=== PATIENT | female | born 1945 | race Two or more races ===

== ENCOUNTER 2024-04-22 13:20 | Emergency (ER) | payer MEDICARE, MEDICAID, SELFPAY ==
--- NOTE | 2024-04-22 13:35 | XR_ITS ---
Examination: CT brain head without contrast. 2-D sagittal coronal reconstructions Date and time of exam:April 22, 2024 1448 hrs. Indications: Ground-level fall yesterday with injury to the head, left head pain CTDI: vol (mGy):41.2 DLP: (mGycm):761 Technique: Multiple CT axial sections of the brain have been obtained, 5 mm slice thickness. Contrast has not been administered. 2-D sagittal, coronal reconstructions have been obtained Low dose protocols were performed. One or more of the following dose reduction techniques were used; automated exposure control, adjustment of the mA and/or KV according to patient size, use of iterative reconstruction technique. Findings: No significant ventricular enlargement. Intra-axial or extra-axial hemorrhage density is not seen. No mass effect or midline shift Basal cisterns are not remarkable. Fourth ventricle is midline. Cranial vault intact. Left frontal parietal scalp swelling Impression: Negative for acute hemorrhage, mass effect or midline shift
--- NOTE | 2024-04-22 13:35 | XR_ITS ---
Examination: CT cervical spine without contrast 2-D sagittal reconstructions 2-D coronal reconstructions 3-D reconstructions. Exam date and time:April 22, 2024 1448 hrs. Indications: Ground-level fall last night with injury to the neck, neck pain CTDI:vol (mGy) 7.11 DLP: (mGycm) 142 Technique: Multiple 2 mm axial sections of the cervical spine have been obtained. The coronal and sagittal reconstructions have been obtained. 3-D reconstructions have been obtained. Low dose protocols were performed. One or more of the following dose reduction techniques were used; automated exposure control, adjustment of the mA and/or KV according to patient size, use of iterative reconstruction technique. Findings: Axial sections demonstrate intact base of the skull. Grade 1 anterolisthesis C4 on C5 Mild old appearing depression superior endplate T2, T3 C1 exhibit satisfactory relationship to the odontoid. No acute cervical vertebral body fracture seen. Alignment posterior spinous processes satisfactory. Impression: No acute cervical fracture.
--- NOTE | 2024-04-22 13:36 | PD.EDADULT ---
ED General RME/HPI General Chief complaint: Fall Stated complaint: fall Time Seen by Provider: 04/22/24 13:34 Arrival date/time: 04/22/24 13:20 CC: Left-sided head pain left arm pain HPI unwitnessed fall patient presents to the ER via EMS who report tachycardia but no other abnormal vital signs from [facility] facility where the none witnessed fall took place patient states she tripped and fell denies any loss of consciousness. Patient also complaining of an abrasion to her left arm. Patient denies LOC ALOC denies nausea or vomiting. Related Data Home Medications ?Medication ?Instructions ?Recorded ?Confirmed carvedilol 3.125 mg tablet 3.125 mg PO BID 05/30/19 04/30/22 digoxin 125 mcg (0.125 mg) tablet 125 mcg PO QDAY 05/30/19 04/30/22 (Digitek) fluoxetine 20 mg capsule 20 mg PO QDAY 05/30/19 04/30/22 insulin degludec 200 unit/mL (3 24 unit subcut QPM 05/30/19 04/30/22 mL) subcutaneous pen (Tresiba FlexTouch U-200 insulin) levothyroxine 50 mcg tablet 50 mcg PO QMORNING 05/30/19 04/30/22 simvastatin 40 mg tablet 40 mg PO QDAY 05/30/19 04/30/22 ticagrelor 90 mg tablet (Brilinta) 90 mg PO QDAY 05/30/19 04/30/22 aspirin 81 mg tablet,delayed 81 mg PO QDAY 05/31/19 04/30/22 release ascorbic acid (vitamin C) 500 mg 500 mg PO QDAY 09/17/20 04/30/22 tablet (Vitamin C) multivitamin 1 tab PO QDAY 09/17/20 04/30/22 omeprazole 20 mg capsule,delayed 20 mg PO QMORNING 09/17/20 04/30/22 release canagliflozin 100 mg tablet 100 mg PO QMORNING 12/08/20 04/30/22 (Invokana) insulin lispro 100 unit/mL 20 unit subcut TID PRN After every 12/08/20 04/30/22 subcutaneous solution (Humalog meal U-100 Insulin) metformin 1,000 mg tablet 1,000 mg PO BID 12/08/20 04/30/22 Previous Rx's ?Medication ?Instructions ?Recorded fenofibrate nanocrystallized 48 mg 48 mg PO QDAY #30 tabs 06/03/19 tablet levetiracetam 250 mg tablet 500 mg (2 x 250 mg) PO BID #60 tabs 09/28/21 nitrofurantoin 25 mg/5 mL oral 100 mg (20 mL) PO BID UTI #240 mL 09/30/21 suspension lorazepam 0.5 mg tablet (Ativan) 0.5 mg PO QDAY PRN agitation #20 11/16/23 tabs Allergies Allergy/AdvReac Type Severity Reaction Status Date / Time Penicillins Allergy Severe Hives Verified 12/08/20 14:13 Review of Systems Review of Systems Narrative Review of Systems: GEN: No fever, no chills, no weight loss EYES: No discharge, no visual changes, no pain HEENT: No ear pain, no congestion, no sore throat PULM: No shortness of breath, no cough, no congestion CV: No chest pain, no dyspnea on exertion, no palpitations GI: No nausea, no vomiting, no diarrhea, no pain, no constipation : No frequency, no urgency, no dysuria MUSC/SKEL: No joint pain, no back pain SKIN: No rash PSYCH: No hallucinations, no depression HEME/LYMPH: No easy bleeding or bruising tendencies NEURO: No weakness, + headache ED Exam Narrative Physical exam: [General: Frail, deconditioned but not in any acute distress Head hematoma to the left temporal region of the scalp as well as the left parietal, no abrasions active bleeding or depressions. HEENT: Eyes pupils are PERRLA EOMs are intact mouth pink dry membranes swallow symmetrical phonation is normal no otorrhea or rhinorrhea raccoon's Carlin sign nasal or facial asymmetry no epistaxis. Neck is supple nontender Chest equal chest rise nontender to palpation Respiratory: Clear to auscultation no wheezes crackles or rubs CV: Rate rhythm is regular no murmurs rubs or clicks Abdomen is soft nontender no masses positive bowel sounds all 4 quadrants Back: No CVA tenderness no spinous process tenderness from cervical spine thoracic and lumbar spine Skin: Intact no petechiae rash induration ulceration or crepitus Extremities: Moving all extremity against resistance cap refill less than 2 seconds neurosensory intact Neuro: Awake alert oriented x2, person and place, Glascow coma 15 no focal deficits] Course Quality Measures none Orders Category Date Time Status CT cervical spine wo con Stat Exams 04/22/24 13:[address] head/brain wo con Stat Exams 04/22/24 13:35 Completed Vital Signs Vital signs: Vital Signs Temperature 98.0 F 04/22/24 14:09 Pulse Rate 70 04/22/24 14:09 Respiratory Rate 16 04/22/24 14:09 Blood Pressure 113/56 L 04/22/24 14:09 Pulse Oximetry (%) 97 04/22/24 14:09 Oxygen Delivery Method Room Air 04/22/24 14:09 MDM Patient data External records reviewed:: [facility] previous records and EMS form Clinical information provided by:: patient and EMS Social determinants that could affect healthcare access:: none Patient has the following chronic illnesses:: Bradycardia deconditioning hypertension type 2 diabetes How is presenting disease/condition affected by chronic disease/condition?: uneffected by Evaluation data The following diagnostics were reviewed and interpreted by me:: radiology exam(s) Lab and/or radiology exams considered but not ordered:: CT head and C-spine are negative for any acute finding. Interpretation Summary: Fall, scalp hematoma Medications Medications considered but not ordered:: None Medication administrations:: None Consultations Consultation(s) initiated? (list below): No Diagnosis Differential Diagnosis ED Complaint MDM: Closed head injury neck fracture intercerebral hemorrhage Most likely diagnosis given after review of the tests above:: Fall, scalp hematoma Admission Indicated Admission indicated?: not indicated Explain why admission is indicated or not indicated:: Stable for discharge Admission Request Was there a request for admission?: No Disposition Plan Disposition Plan: Discharge Discharge Attestation Discharge Attestation: The patient and all family members were given an opportunity to ask questions and understood the discharge instructions. Discharge instructions specifically effects, indications for sooner follow up or return to the emergency department, and the expected course of current diagnosis. Patient condition: Stable Medical Decision Making Differential Diagnosis Differential Diagnosis: Closed head injury neck fracture intercerebral hemorrhage Discharge Plan Plan Patient Disposition: HOME (Self Care) Patient condition on transfer: Stable Prescriptions/Referrals Prescriptions/Med Rec: No Action levothyroxine 50 mcg Tablet 50 mcg PO QMORNING Patient Comments: BEFORE MEALS ON EMPTY STOMACH insulin degludec [Tresiba FlexTouch U-200] 200 unit/mL (3 mL) Insulin Pen 24 unit SUBCUT QPM simvastatin 40 mg Tablet 40 mg PO QDAY carvedilol 3.125 mg Tablet 3.125 mg PO BID digoxin [Digitek] 125 mcg (0.125 mg) Tablet 125 mcg PO QDAY fluoxetine 20 mg Capsule 20 mg PO QDAY Brilinta 90 mg Tablet 90 mg PO QDAY aspirin 81 mg Tablet,Delayed Release (Dr/Ec) 81 mg PO QDAY fenofibrate nanocrystallized 48 mg tablet 48 mg PO QDAY Qty: 30 0RF metformin 1,000 mg Tablet 1,000 mg PO BID insulin lispro [Humalog U-100 Insulin] 100 unit/mL solution 20 unit subcut TID PRN (Reason: After every meal) Invokana 100 mg Tablet 100 mg PO QMORNING Patient Comments: BEFORE MEALS ON EMPTY STOMACH levetiracetam 250 mg Tablet 500 mg PO BID Qty: 60 1RF nitrofurantoin 25 mg/5 mL suspension 100 mg PO BID MDD 40 ml Qty: 240 0RF Rx Instructions: must administer with a meal/food multivitamin Tablet 1 tab PO QDAY ascorbic acid (vitamin C) [Vitamin C] 500 mg Tablet 500 mg PO QDAY omeprazole 20 mg capsule,delayed release(DR/EC) 20 mg PO QMORNING Patient Comments: BEFORE MEALS ON EMPTY STOMACH lorazepam [Ativan] 0.5 mg tablet 0.5 mg PO QDAY PRN (Reason: agitation) Qty: 20 0RF Referrals: Primo Carson MD [Primary Care Provider] - In 1 week Problem List Clinical Impression: Fall, Left parietal scalp hematoma Patient/Caregiver Discharge Instructions Education Materials: ED Soft Tissue Contusion, ED Fall with Uncertain Cause Print Language: Indonesian Stand Alone Forms: Justine Award Info., Patient Portal Info Letter PA/MANAGER [employer] Supervising Physician PA/MANAGER [employer] Supervising Physician: Brooks Hunter ENP
[2024-04-22 14:02] VITALS: RESP 18; O2SAT 97; BMI 27.4
--- NOTE | 2024-04-22 14:02 | PC.NURSE ---
[facility] from SNF due to unwitnessed fall at 1300. Patient states she remembers falling neg LOC. Per EMS FSB 224, hx of falls, DM, HTN. Patient c/o generalized L sided head and arm pain. Patient arrived to ED with a doll, and calls it her baby. Patient was reoriented that she had a doll in her arms. Patient states This is not a doll, it's a real baby
[2024-04-22 14:09] VITALS: BP 113/56; PULSE 70; RESP 16; TEMP 36.7; O2SAT 97
--- NOTE | 2024-04-22 17:00 | PC.CC ---
[employer] engaged to arrange transport for pt back to [facility]. Pt with hx of dementia and is a high fall risk. 1621-[employer] contacted [facility] transport requested trip ID #[id number]. PCS and face sheet uploaded to [employer]. [id number] from [facility], transport ETA 1740 or sooner.
[2024-04-22 17:09] VITALS: BP 119/60; PULSE 66; RESP 16; TEMP 36.9; O2SAT 100
== END 2024-04-22 17:16 | disposition home or self-care (01) ==
PROVIDERS: Emergency Provider Emergency Medicine; PCP Hospitalist
DX: S00.03XA Contusion of scalp, initial encounter (principal); S19.9XXA Unspecified injury of neck, initial encounter; W01.0XXA Fall on same level from slipping, tripping and stumbling without subsequent striking against object, initial encounter
CPT/HCPCS: 70450; 72125; 99284

== ENCOUNTER 2024-05-15 17:57 | Emergency (ER) | payer MEDICARE, MEDICAID, SELFPAY ==
--- NOTE | 2024-05-15 18:05 | XR_ITS ---
Examination: CT cervical spine without contrast 2-D sagittal reconstructions 2-D coronal reconstructions 3-D reconstructions. Exam date and time:May 15, 2024 2030 hrs. Comparison April 22, 2024 Indications: Ground-level fall today with into the neck, neck pain CTDI:vol (mGy) 6.98 DLP: (mGycm) 136 Technique: Multiple 2 mm axial sections of the cervical spine have been obtained. The coronal and sagittal reconstructions have been obtained. 3-D reconstructions have been obtained. Low dose protocols were performed. One or more of the following dose reduction techniques were used; automated exposure control, adjustment of the mA and/or KV according to patient size, use of iterative reconstruction technique. Findings: Axial sections demonstrate intact base of the skull. Stable grade 1 anterolisthesis C4 on C5 C1 exhibit satisfactory relationship to the odontoid. No acute cervical vertebral body fracture seen. Alignment posterior spinous processes satisfactory. C3-C4 4 mm central osteophyte disc complex C5-C6 3 mm central disc protrusion Impression: No acute cervical fracture.
--- NOTE | 2024-05-15 18:05 | XR_ITS ---
Examination: CT brain head without contrast. 2-D sagittal coronal reconstructions Date and time of exam:May 15, 2024 2030 hrs. Comparison: April 22, 2024 Indications: Ground-level fall today with injury to the head, head pain CTDI: vol (mGy):41.6 DLP: (mGycm):791 Technique: Multiple CT axial sections of the brain have been obtained, 5 mm slice thickness. Contrast has not been administered. 2-D sagittal, coronal reconstructions have been obtained Low dose protocols were performed. One or more of the following dose reduction techniques were used; automated exposure control, adjustment of the mA and/or KV according to patient size, use of iterative reconstruction technique. Findings: No significant ventricular enlargement. Intra-axial or extra-axial hemorrhage density is not seen. No mass effect or midline shift Basal cisterns are not remarkable. Fourth ventricle is midline. Cranial vault intact. Impression: Negative for acute hemorrhage, mass effect or midline shift
--- NOTE | 2024-05-15 18:05 | EDNOTE_ITS ---
ED General RME/HPI General Chief complaint: Fall Stated complaint: FALL Time Seen by Provider: 05/15/24 18:04 Arrival date/time: 05/15/24 17:57 CC: Ground-level fall assessment. The patient presents the ER via EMS with stable vital signs to stay the patient is coming from assisted care facility. Review the paperwork show the patient is a DNR DNI comfort care only. I am not sure why this patient is being sent. The patient has a baseline GCS of 14 is verbal. No specific complaints. Left message with daughter regarding clarifications for care. At 2008, daughter at bedside, and had a long discussion with the daughter regarding a DNR comfort care only. The daughter wants the CT is done at this time and will determine what they need to do with a DNR at a later date. Patient is awake alert oriented stating she has minor left facial pain status post fall Related Data Home Medications ?Medication ?Instructions ?Recorded ?Confirmed carvedilol 3.125 mg tablet 3.125 mg PO BID 05/30/19 04/30/22 digoxin 125 mcg (0.125 mg) tablet 125 mcg PO QDAY 05/30/19 04/30/22 (Digitek) fluoxetine 20 mg capsule 20 mg PO QDAY 05/30/19 04/30/22 insulin degludec 200 unit/mL (3 24 unit subcut QPM 05/30/19 04/30/22 mL) subcutaneous pen (Tresiba FlexTouch U-200 insulin) levothyroxine 50 mcg tablet 50 mcg PO QMORNING 05/30/19 04/30/22 simvastatin 40 mg tablet 40 mg PO QDAY 05/30/19 04/30/22 ticagrelor 90 mg tablet (Brilinta) 90 mg PO QDAY 05/30/19 04/30/22 aspirin 81 mg tablet,delayed 81 mg PO QDAY 05/31/19 04/30/22 release ascorbic acid (vitamin C) 500 mg 500 mg PO QDAY 09/17/20 04/30/22 tablet (Vitamin C) multivitamin 1 tab PO QDAY 09/17/20 04/30/22 omeprazole 20 mg capsule,delayed 20 mg PO QMORNING 09/17/20 04/30/22 release canagliflozin 100 mg tablet 100 mg PO QMORNING 12/08/20 04/30/22 (Invokana) insulin lispro 100 unit/mL 20 unit subcut TID PRN After every 12/08/20 04/30/22 subcutaneous solution (Humalog meal U-100 Insulin) metformin 1,000 mg tablet 1,000 mg PO BID 12/08/20 04/30/22 Previous Rx's ?Medication ?Instructions ?Recorded fenofibrate nanocrystallized 48 mg 48 mg PO QDAY #30 tabs 06/03/19 tablet levetiracetam 250 mg tablet 500 mg (2 x 250 mg) PO BID #60 tabs 09/28/21 nitrofurantoin 25 mg/5 mL oral 100 mg (20 mL) PO BID UTI #240 mL 09/30/21 suspension lorazepam 0.5 mg tablet (Ativan) 0.5 mg PO QDAY PRN agitation #20 11/16/23 tabs Allergies Allergy/AdvReac Type Severity Reaction Status Date / Time Penicillins Allergy Severe Hives Verified 12/08/20 14:13 Review of Systems Review of Systems ROS Unobtainable: unobtainable due to mental status Narrative Review of Systems: GEN: No fever, no chills, no weight loss EYES: No discharge, no visual changes, no pain HEENT: No ear pain, no congestion, no sore throat PULM: No shortness of breath, no cough, no congestion CV: No chest pain, no dyspnea on exertion, no palpitations GI: No nausea, no vomiting, no diarrhea, no pain, no constipation : No frequency, no urgency, no dysuria MUSC/SKEL: No joint pain, no back pain SKIN: No rash PSYCH: No hallucinations, no depression HEME/LYMPH: No easy bleeding or bruising tendencies NEURO: No weakness, no headache Past Medical History Past Medical History NEUROLOGIC: Positive Neurological Disorders, Transient Ischemic Attacks (TIA), Dementia, Epilepsy and Head Trauma; Negative Cerebrovascular Accident, Alzheimer's Disease, Parkinson's Disease, Brain Tumor, Meningitis, Seizures, Multiple Sclerosis, Cerebral Palsy, Amyotrophic Lateral Sclerosis (ALS/Prabha Gehrig's), Guillain-Dolphin Syndrome, Spina Bifida, Paralysis, Peripheral Neuropathy, Love's Palsy, Subdural Hematoma, Migraine, Spinal Cord Injury or Traumatic Brain Injury CARDIAC: Positive Cardiac Disorders, Myocardial Infarction, Cardiac Arrhythmia, Atrial Fibrillation, Angina, Coronary Artery Disease, Hypercholesterolemia, Congenital Heart Disease, Hypertension and Varicose Veins; Negative Heart Murmur, Atherosclerotic Heart Disease, Peripheral Vascular Disease, Aneurysm, Congestive Heart Failure, Valvular Heart Disease, Rheumatic Fever, Cardiomyopathy, Edema, Pericarditis, Cellulitis, Deep Vein Thrombosis or Hypotension RESPIRATORY: Positive Bronchitis; Negative Chronic Obstructive Pulmonary Disease (COPD), Asthma, Emphysema, Pneumonia, Pulmonary Fibrosis, Tuberculosis, Pulmonary Embolism, Pulmonary Edema or Sleep Apnea GASTROINTESTINAL: Positive Gall Bladder Disease, Gastrointestinal Bleed, Ulcer, Hemorrhoids and Gastroesophageal Reflux Disease; Negative Gastrointestinal Disorders, Hepatitis, Cirrhosis, Pancreatitis, Celiac Disease, Esophageal Varices, Velázquez's Esophagus, Colitis, Ulcerative Colitis, Diverticulitis, Diverticulosis, Colorectal Cancer, Irritable Bowel, Crohn's Disease, Obstructive Bowel, Hiatal Hernia or Obesity GENITOURINARY: Positive Kidney Stones; Negative Genitourinary Disorders, Renal Disease, Polycystic Kidney Disease, Neurogenic Bladder, Inguinal Hernia, Dialysis, Prostate Cancer or Benign Prostatic Hyperplasia REPRODUCTIVE: Negative Breast Cancer, Endometriosis, Genital Herpes, Gonorrhea, Pelvic Inflammatory Disease, Previous Pregnancies, Syphilis, Testicular Cancer or Uterine Prolapse MUSCULOSKELETAL: Positive Arthritis, Osteoporosis and Fractures; Negative Bone Cancer, Rheumatoid Arthritis, Degenerative Disk Disease, Gout, Scoliosis, Carpal Tunnel Syndrome, Fibromyalgia, Degenerative Joint Disease, Osteomyelitis or Poliovirus ENT: Positive Glaucoma and Head Trauma; Negative Cataracts, Blind, Retinal Detachment, Macular Degeneration, Ear Infection, Deafness or Eye Prosthesis ENDOCRINE: Positive Endocrine Disorders, Diabetes Mellitus Type 2, Hypoglycemia, Hypothyroidism and Parathyroid Disease; Negative Diabetes Mellitus Type 1, Taqueria's Syndrome, [place]'s Disease, Hyperthyroidism, Pituitary Disease, Systemic Lupus Erythematosus, Syndrome of Inappropriate Antidiuretic Hormone (SIADH), Adrenal Disease or Graves' Disease HEMATOLOGIC: Negative Blood Disorders, Anemia, Leukemia, Hemophilia, Thalassemia, Sickle Cell Disease or Clotting Problems PSYCHO/SOCIAL: Positive Depression, Anxiety and Behavior Problems; Negative Psychiatric Problems, Schizophrenia, Recreational Drug Use, Bipolar Disorder, Self-Mutilation, Attention Deficit Disorder, Attention Deficit Hyperactivity Disorder, Depression, Post Traumatic Stress Disorder or Eating Disorder OTHER HISTORY: Positive Hospitalization and Falls; Negative Autoimmune Disease, Down Syndrome, Autism, Developmental Delay, Shingles, Blood Transfusions, Blood Transfusion Reaction, Anesthesia Reactions, Organ Transplant, Chemotherapy, Radiation Therapy, Hyperbaric Therapy, MRSA, VRSA, Vancomycin-Resistant Enterococci, Human Immunodeficiency Virus (HIV), Chicken Pox, Measles, Mumps, Rubella (Setswana Measles), Pertussis, Clostridium Difficile, Cancer, Breast Cancer, Cervical Cancer, Colorectal Cancer, Lung Cancer, Ovarian Cancer, Prostate Cancer or Testicular Cancer Family History FAMILY HISTORY: Positive Family Cardiac Disorders and Family Surgery; Negative Family Psychiatric Problems, Family Respiratory Disorders, Family Gastrointestinal Problems, Family Cancer or Family Anesthesia Reaction Surgical History SURGICAL: Positive Cardiac Surgery, Coronary Stent, Pacemaker, Auto Implanted Cardiovert Defib, Tonsillectomy, Adenoidectomy and Hysterectomy; Negative Cardiac Catheterization, Ear Surgery, Tympanostomy Tube, Eye Surgery, Nose Surgery, Oral Surgery, Cochlear Implant, Corneal Transplant, Throat Surgery, Abdominal Surgery, Tracheostomy, Gastric Bypass Surgery, Gastrostomy, Bowel Surgery, Joint Replacement, Amputation, Open Reduction Internal Fixation, Arthroscopy, Neurologic Surgery, Brain Shunt, Mastectomy, Lumpectomy, Tubal Lig ation, Section, Vasectomy or Organ Transplant Social History SMOKING STATUS: Never smoker SECOND HAND EXPOSURE: No SUBSTANCE USE: does not use ED Exam Narrative Physical exam: [General: Frail, deconditioned, not in any acute distress Head normocephalic, no step-off hematoma depression induration. HEENT: Eyes pupils are PERRLA EOMs are intact, tracking without entrapment. Mouth: pink moist membranes uvula is midline swallow symmetrical within acceptable limits face: The patient has minor ecchymosis around the left eye orbit, very stages of resolution. Nose: No rhinorrhea epistaxis. Neck is supple nontender, no JVD no edema Chest equal chest rise nontender to palpation Respiratory: Clear to auscultation no wheezes crackles or rubs CV: Rate rhythm is regular no murmurs rubs or clicks Abdomen is soft nontender no masses positive bowel sounds all 4 quadrants Back: No CVA tenderness no spinous process tenderness from cervical spine thoracic and lumbar spine Skin: Intact no petechiae rash induration ulceration or crepitus Extremities: Moving all extremity against resistance cap refill less than 2 seconds neurosensory intact Neuro: Awake alert oriented x 1, self Glascow coma 15 no focal deficits] Course Quality Measures none Orders Category Date Time Status CT cervical spine wo con Stat Exams 05/15/24 18:[address] head/brain wo con Stat Exams 05/15/24 18:05 Completed Vital Signs Vital signs: Vital Signs Temperature 98.1 F 05/15/24 18:17 Pulse Rate 74 05/15/24 18:17 Respiratory Rate 16 05/15/24 18:17 Blood Pressure 124/59 L 05/15/24 18:17 Pulse Oximetry (%) 99 05/15/24 18:17 Oxygen Delivery Method Room Air 05/15/24 18:17 [facility] Patient data External records reviewed:: [facility] previous records and EMS form Clinical information provided by:: EMS Social determinants that could affect healthcare access:: none Patient has the following chronic illnesses:: Heart failure hypertension hyperlipidemia hypothyroidism pacemaker bradycardia anxiety history of falling How is presenting disease/condition affected by chronic disease/condition?: exacerbated by Evaluation data The following diagnostics were reviewed and interpreted by me:: radiology exam (s) Lab and/or radiology exams considered but not ordered:: CT head and C-spine is negative Interpretation Summary: Patient has had no deterioration in neurologic status throughout her visit emergency room and lengthy discussion with the daughter who understands that she needs to make some changes to the DNR selection. Patient is awake and alert. Will discharge home Medications Medications considered but not ordered:: None Medication administrations:: None Consultations Consultation(s) initiated? (list below): No Diagnosis Differential Diagnosis ED Complaint MDM: Closed injury neck fracture facial fracture Most likely diagnosis given after review of the tests above:: Ground-level fall Admission Indicated Admission indicated?: not indicated Explain why admission is indicated or not indicated:: Stable for outpatient follow-up Admission Request Was there a request for admission?: No Disposition Plan Disposition Plan: Discharge Discharge Attestation Discharge Attestation: The patient and all family members were given an opportunity to ask questions and understood the discharge instructions. Discharge instructions specifically effects, indications for sooner follow up or return to the emergency department, and the expected course of current diagnosis. Patient condition: Stable Medical Decision Making Differential Diagnosis Differential Diagnosis: Closed injury neck fracture facial fracture Discharge Plan Plan Patient Disposition: HOME (Self Care) Patient condition on transfer: Stable Prescriptions/Referrals Prescriptions/Med Rec: No Action levothyroxine 50 mcg Tablet 50 mcg PO QMORNING Patient Comments: BEFORE MEALS ON EMPTY STOMACH insulin degludec [Tresiba FlexTouch U-200] 200 unit/mL (3 mL) Insulin Pen 24 unit SUBCUT QPM simvastatin 40 mg Tablet 40 mg PO QDAY carvedilol 3.125 mg Tablet 3.125 mg PO BID digoxin [Digitek] 125 mcg (0.125 mg) Tablet 125 mcg PO QDAY fluoxetine 20 mg Capsule 20 mg PO QDAY Brilinta 90 mg Tablet 90 mg PO QDAY aspirin 81 mg Tablet,Delayed Release (Dr/Ec) 81 mg PO QDAY fenofibrate nanocrystallized 48 mg tablet 48 mg PO QDAY Qty: 30 0RF metformin 1,000 mg Tablet 1,000 mg PO BID insulin lispro [Humalog U-100 Insulin] 100 unit/mL solution 20 unit subcut TID PRN (Reason: After every meal) Invokana 100 mg Tablet 100 mg PO QMORNING Patient Comments: BEFORE MEALS ON EMPTY STOMACH levetiracetam 250 mg Tablet 500 mg PO BID Qty: 60 1RF nitrofurantoin 25 mg/5 mL suspension 100 mg PO BID MDD 40 ml Qty: 240 0RF Rx Instructions: must administer with a meal/food multivitamin Tablet 1 tab PO QDAY ascorbic acid (vitamin C) [Vitamin C] 500 mg Tablet 500 mg PO QDAY omeprazole 20 mg capsule,delayed release(DR/EC) 20 mg PO QMORNING Patient Comments: BEFORE MEALS ON EMPTY STOMACH lorazepam [Ativan] 0.5 mg tablet 0.5 mg PO QDAY PRN (Reason: agitation) Qty: 20 0RF Referrals: Primo Carson MD [Primary Care Provider] - In 1 week Problem List Clinical Impression: Fall Patient/Caregiver Discharge Instructions Education Materials: Preventing Falls Moving Safely ... Print Language: Belarusian Stand Alone Forms: Justine Award Info., Patient Portal Info Letter, Work/School Release PA/REAL TIME TRADER Supervising Physician PA/REAL TIME TRADER Supervising Physician: Brooks Hunter ENP
[2024-05-15 18:17] VITALS: BP 124/59; PULSE 74; RESP 16; TEMP 36.7; O2SAT 99
[2024-05-15 19:57] VITALS: BP 125/54; PULSE 73; RESP 18; TEMP 36.7; O2SAT 99
[2024-05-15 21:20] VITALS: BP 140/53; PULSE 70; RESP 16; O2SAT 100
[2024-05-15 22:10] VITALS: RESP 18
--- NOTE | 2024-05-15 22:14 | PC.NURSE ---
PT'S DAUGHTER TOOK PT BACK TO [facility]. ARASELI REPORT TO NURSE AT THE FACILITY.
== END 2024-05-15 22:13 | disposition home or self-care (01) ==
PROVIDERS: Emergency Provider Emergency Medicine; PCP Hospitalist
DX: S09.90XA Unspecified injury of head, initial encounter (principal); M54.2 Cervicalgia; W18.30XA Fall on same level, unspecified, initial encounter
CPT/HCPCS: 70450; 72125; 99284

== ENCOUNTER 2024-07-23 21:39 | Emergency (ER) | payer MEDICARE, MEDICAID, SELFPAY ==
[2024-07-23 21:42] VITALS: BP 147/75; PULSE 84; RESP 17; TEMP 36.8; O2SAT 98
--- NOTE | 2024-07-23 22:05 | EKG_ITS ---
[facility] Test Date: 2024-07-23 Pat Name: PADMINI PRICE Department: Room: - Gender: Female Vein Pumper: : 1945 Requested By: Abdiel Martínez Order Number: [id number] Reading MD: Abdiel Martínez Measurements Intervals [place] Rate: 65 P: 46 [place]: 174 QRS: 2 QRSD: 95 T: 36 QT: 338 QTc: 352 Interpretive Statements SINUS RHYTHM POSSIBLE ANTERIOR MYOCARDIAL INFARCTION , OF INDETERMINATE AGE [30 ms Q WAVE IN V3/V4, OR R < 0.2 mV IN V4] POSSIBLE INFERIOR MYOCARDIAL INFARCTION , OF INDETERMINATE AGE [30 ms Q WAVE IN II/aVF] Compared to ECG 01/18/2024 08:30:05 Atrial-paced complex(es) or rhythm no longer present Myocardial infarct finding still present /store/S0/[id number]/ecg/[id number].pdf
--- NOTE | 2024-07-23 22:07 | PD.EDRME ---
Rapid Medical Screening Exam RME Arrival date/time: 07/23/24 21:39 29-year-old female brought in by EMS for weakness pale color and bilateral leg pain Time Seen by Provider: 07/23/24 21:57 Vital signs: Vital Signs Temperature 98.2 F 07/23/24 21:42 Pulse Rate 84 07/23/24 21:42 Respiratory Rate 17 07/23/24 21:42 Blood Pressure 147/75 H 07/23/24 21:42 Pulse Oximetry (%) 98 07/23/24 21:42 Oxygen Delivery Method Room Air 07/23/24 21:42
[2024-07-23 22:42] LABS: Beta Hydroxybutyrate 0.2 mmol/L (<0.6)
[2024-07-23 23:00] LABS: Basophils % (Auto) 1 % (0-2.5); Eosinophils # (Auto) 0.1 Thou/mm3 (0.0-0.5); Eosinophils % (Auto) 2 % (0-10); Hematocrit 33.3 % (36.0-46.0); Hemoglobin 11.4 g/dL (12.0-16.0); Immature Granulocytes % (Auto) 1 % (0-0); Immature Granulocytes Auto 0.04 Thou/mm3 (0.00-0.00); Lymphocytes # (Auto) 2.1 Thou/mm3 (1.0-4.8); Lymphocytes % (Auto) 29 % (10-50); Mean Corpuscular HGB Conc 34.2 g/dl (31.0-37.0); Mean Corpuscular Hemoglobin 30.3 pg (25.0-35.0); Mean Corpuscular Volume 89 fL (80-100); Monocytes # (Auto) 0.4 Thou/mm3 (0.0-0.8); Monocytes % (Auto) 6 % (0-12); Neutrophils # (Auto) 4.4 Thou/mm3 (1.8-7.7); Neutrophils % (Auto) 62 % (37-80); Nucleated Red Blood Cell % 0 /100 WBC (0); Platelet Count 140 Thou/mm3 (140-440); RDW Standard Deviation 40.6 fL (36.4-46.3); Red Blood Count 3.76 Miln/mm3 (4.00-5.20); White Blood Count 7.1 Thou/mm3 (3.6-11.0)
[2024-07-23 23:15] LABS: Collection Type, Urine Catheter
[2024-07-23 23:19] LABS: Bacteria,Urine 1+; Bilirubin,Urine Negative (Negative); Blood,Urine Negative (Negative); Clarity,Urine Clear (Clear/Hazy); Color,Urine Lt-Yellow (Lt Yel-Yel); Culture Indicated,Urine Yes; Glucose, Urine 2+ (Negative); Hyaline Casts,Urine < 1 /hpf (0-1); Ketones,Urine Negative (Negative); Leukocyte Esterase,Urine Positive (Negative); Nitrite,Urine Positive (Negative); Protein,Urine Trace (Neg - Trace); RBC,Urine 1 /hpf (0-3); Specific Gravity,Urine 1.012 (1.001-1.035); Squamous Epithelial Cell,Urine < 1 /hpf (0-5); Urobilinogen,Urine Negative mg/dL (0.0-1.0); WBC,Urine 15 /hpf (0-5)
[2024-07-23 23:20] VITALS: BMI 17.3
--- NOTE | 2024-07-23 23:34 | EDNOTE_ITS ---
<Statement entered by Jasmyn Weir MD - 07/24/24 01:44> As co-signing physician, I was present and available for consult prn. I concur with the plan and care as documented by the midlevel provider. Lower Extremity Injury RME/HPI General Chief Complaint: Extremity Injury, Lower Stated Complaint: FOOT PAIN Time Seen by Provider: 07/23/24 21:57 Arrival date/time: 07/23/24 21:39 79-year-old female with a history of dementia, CHF, hypothyroidism, DM, and is a resident at a half-way facility was sent via EMS for bilateral lower extremity pain pale skin and weakness. Patient's daughter states she has a history of anemia and is concerned that her levels are low again as she appears to be extremely pale. Daughter also states that mom does have some confusion given the dementia but today she is more confused than typical. Daughter states that she was advised by her mom that her legs were hurting but there is no evidence of injury with no bruising swelling or deformity. Limitations: no limitations RME / HPI RME / HPI Narrative: 07/23/24 21:39 79-year-old female brought in by EMS for weakness pale color and bilateral leg pain Related Data Home Medications ?Medication ?Instructions ?Recorded ?Confirmed carvedilol 3.125 mg tablet 3.125 mg PO BID 05/30/19 digoxin 125 mcg (0.125 mg) tablet 125 mcg PO QDAY 06/1804/30/22 (Digitek) fluoxetine 20 mg capsule 20 mg PO QDAY 05/30/1904/30 insulin degludec 200 unit/mL (3 24 unit subcut QPM 06/1804/30/22 mL) subcutaneous pen (Tresiba FlexTouch U-200 insulin) levothyroxine 50 mcg tablet 50 mcg PO QMORNING 0 04/30/22 simvastatin 40 mg tablet 40 mg PO QDAY 05/30/1904/30 ticagrelor 90 mg tablet (Brilinta) 90 mg PO QDAY 05/3004/30/22 aspirin 81 mg tablet,delayed 81 mg PO QDAY 05/31/19 release ascorbic acid (vitamin C) 500 mg 500 mg PO QDAY 04/30/22 tablet (Vitamin C) multivitamin 1 tab PO QDAY 09/17/2004/30 omeprazole 20 mg capsule,delayed 20 mg PO QMORNING 04/30/22 release canagliflozin 100 mg tablet 100 mg PO QMORNING 1 04/30/22 (Invokana) insulin lispro 100 unit/mL 20 unit subcut TID PRN Afte r every 12/08/20 04/30/22 subcutaneous solution (Humalog meal U-100 Insulin) metformin 1,000 mg tablet 1,000 mg PO BID 12/08/2007/21 Previous Rx's ?Medication ?Instructions ?Recorded fenofibrate nanocrystallized 48 mg 48 mg PO QDAY #30 t abs 06/03/19 tablet levetiracetam 250 mg tablet 500 mg (2 x 250 mg) PO BID #60 tabs 09/28/21 nitrofurantoin 25 mg/5 mL oral 100 mg (20 mL) PO BID U TI #240 mL 09/30/21 suspension lorazepam 0.5 mg tablet (Ativan) 0.5 mg PO QDAY PRN ag itation #20 11/16/23 tabs nitrofurantoin 100 mg PO Q12H 7 days #14 ca ps 07/24/24 monohydrate/macrocrystals 100 mg capsule (Macrobid) Allergies Allergy/AdvReac Type Severity Reaction Status Date / Time Penicillins Allergy Severe Hives Verified 07/23/24 21:42 Review of Systems Constitutional Constitutional: Denies chills and Denies fever(s) Cardiovascular Cardiovascular: Denies chest pain, Denies dyspnea and Denies syncope Respiratory Respiratory: Denies cough and Denies dyspnea Gastrointestinal Gastrointestinal: Denies abdominal pain and Denies vomiting Genitourinary Genitourinary: Denies difficulty voiding, Denies dysuria and Denies hematuria Musculoskeletal Musculoskeletal: Reports arthralgias, Denies deformity and Denies joint swelling Integumentary/Breasts Skin/Breast: Denies erythema, Denies rash, Denies unusual bruising and Denies wounds Neurologic Neurologic: Reports behavioral changes, Reports confusion, Denies convulsions and Denies syncope Psychiatric Psychiatric: Reports behavioral changes, Denies change in appetite and Reports confusion Hematologic/Lymphatic Hematologic/Lymphatic: Denies easy bleeding and Denies easy bruising Past Medical History Past Medical History NEUROLOGIC: Positive Neurological Disorders, Transient Ischemic Attacks (TIA), Dementia, Epilepsy and Head Trauma; Negative Cerebrovascular Accident, Alzheimer's Disease, Parkinson's Disease, Brain Tumor, Meningitis, Seizures, Multiple Sclerosis, Cerebral Palsy, Amyotrophic Lateral Sclerosis (ALS/Prabha Gehrig's), Guillain-[place] Syndrome, Spina Bifida, Paralysis, Peripheral Neuropathy, Love's Palsy, Subdural Hematoma, Migraine, Spinal Cord Injury or Traumatic Brain Injury CARDIAC: Positive Cardiac Disorders, Myocardial Infarction, Cardiac Arrhythmia, Atrial Fibrillation, Angina, Coronary Artery Disease, Hypercholesterolemia, Hypertension and Varicose Veins; Negative Heart Murmur, Atherosclerotic Heart Disease, Peripheral Vascular Disease, Aneurysm, Congestive Heart Failure, Congenital Heart Disease, Valvular Heart Disease, Rheumatic Fever, Cardiomyopathy, Edema, Pericarditis, Cellulitis, Deep Vein Thrombosis or Hypotension RESPIRATORY: Negative Chronic Obstructive Pulmonary Disease (COPD), Asthma, Bronchitis, Emphysema, Pneumonia, Pulmonary Fibrosis, Tuberculosis, Pulmonary Embolism, Pulmonary Edema or Sleep Apnea GASTROINTESTINAL: Positive Gall Bladder Disease, Gastrointestinal Bleed, Ulcer, Hemorrhoids and Gastroesophageal Reflux Disease; Negative Gastrointestinal Disorders, Hepatitis, Cirrhosis, Pancreatitis, Celiac Disease, Esophageal Varices, Velázquez's Esophagus, Colitis, Ulcerative Colitis, Diverticulitis, Diverticulosis, Colorectal Cancer, Irritable Bowel, Crohn's Disease, Obstructive Bowel, Hiatal Hernia or Obesity GENITOURINARY: Positive Kidney Stones; Negative Genitourinary Disorders, Renal Disease, Polycystic Kidney Disease, Neurogenic Bladder, Inguinal Hernia, Dialysis, Prostate Cancer or Benign Prostatic Hyperplasia REPRODUCTIVE: Negative Breast Cancer, Endometriosis, Genital Herpes, Gonorrhea, Pelvic Inflammatory Disease, Previous Pregnancies, Syphilis, Testicular Cancer or Uterine Prolapse MUSCULOSKELETAL: Positive Arthritis, Osteoporosis and Fractures; Negative Bone Cancer, Rheumatoid Arthritis, Degenerative Disk Disease, Gout, Scoliosis, Carpal Tunnel Syndrome, Fibromyalgia, Degenerative Joint Disease, Osteomyelitis or Poliovirus ENT: Positive Glaucoma and Head Trauma; Negative Cataracts, Blind, Retinal Detachment, Macular Degeneration, Ear Infection, Deafness or Eye Prosthesis ENDOCRINE: Positive Endocrine Disorders, Diabetes Mellitus Type 2, Hypoglycemia, Hypothyroidism and Parathyroid Disease; Negative Diabetes Mellitus Type 1, Hull's Syndrome, [place]'s Disease, H yperthyroidism, Pituitary Disease, Systemic Lupus Erythematosus, Syndrome of Inappropriate Antidiuretic Hormone (SIADH), Adrenal Disease or Graves' Disease HEMATOLOGIC: Negative Blood Disorders, Anemia, Leukemia, Hemophilia, Thalassemia, Sickle Cell Disease or Clotting Problems PSYCHO/SOCIAL: Positive Depression, Anxiety and Behavior Problems; Negative Psychiatric Problems, Schizophrenia, Recreational Drug Use, Bipolar Disorder, Self-Mutilation, Attention Deficit Disorder, Attention Deficit Hyperactivity Disorder, Depression, Post Traumatic Stress Disorder or Eating Disorder OTHER HISTORY: Positive Hospitalization and Falls; Negative Autoimmune Disease, Down Syndrome, Autism, Developmental Delay, Shingles, Blood Transfusions, Blood Transfusion Reaction, Anesthesia Reactions, Organ Transplant, Chemotherapy, Radiation Therapy, Hyperbaric Therapy, MRSA, VRSA, Vancomycin-Resistant Enterococci, Human Immunodeficiency Virus (HIV), Chicken Pox, Measles, Mumps, Rubella (Frisian Measles), Pertussis, Clostridium Difficile, Cancer, Breast Cancer, Cervical Cancer, Colorectal Cancer, Lung Cancer, Ovarian Cancer, Prostate Cancer or Testicular Cancer Family History FAMILY HISTORY: Positive Family Cardiac Disorders and Family Surgery; Negative Family Psychiatric Problems, Family Respiratory Disorders, Family Gastrointestinal Problems, Family Cancer or Family Anesthesia Reaction Surgical History SURGICAL: Positive Cardiac Surgery, Coronary Stent, Pacemaker, Auto Implanted Cardiovert Defib, Tonsillectomy, Adenoidectomy and Hysterectomy; Negative Cardiac Catheterization, Ear Surgery, Tympanostomy Tube, Eye Surgery, Nose Surgery, Oral Surgery, Cochlear Implant, Corneal Transplant, Throat Surgery, Abdominal Surgery, Tracheostomy, Gastric Bypass Surgery, Gastrostomy, Bowel Surgery, Joint Replacement, Amputation, Open Reduction Internal Fixation, Arthroscopy, Neurologic Surgery, Brain Shunt, Mastectomy, Lumpectomy, Tubal Liga tion, Section, Vasectomy or Organ Transplant Social History SMOKING STATUS: Never smoker SECOND HAND EXPOSURE: No SUBSTANCE USE: does not use ED Exam General Limitations: Present no limitations General appearance: Present alert and in no apparent distress Head Head exam: Present atraumatic Eye Eye exam: Present normal appearance, PERRL and EOMI ENT ENT exam: Present normal exam, normal oropharynx and mucous membranes moist Neck Neck exam: Present normal inspection, full ROM and trachea midline Chest Chest inspection: Present normal inspection and symmetric chest wall rise Respiratory Respiratory exam: Present normal lung sounds bilaterally Cardiovascular Cardiovascular exam: Present regular rate, normal rhythm and normal heart sounds Abdominal Exam Abdominal exam: Present soft and normal bowel sounds Extremities Exam Extremities exam: Present normal inspection and full ROM Back Exam Back exam: Present normal inspection and full ROM Neurological Exam Neurological exam: Present alert, oriented X3 and CN II-XII intact Psychiatric Psychiatric exam: Present normal affect and normal mood Skin Skin exam: Present warm, dry, intact and normal color Course Course Course Narrative: 79-year-old female with a history of dementia, CHF, hypothyroidism, DM, and is a resident at a half-way facility was sent via EMS for bilateral lower extremity pain pale skin and weakness. Patient is EKG sinus rhythm with no ischemic changes no STEMI noted, troponin also negative, beta hydroxybutyrate ,CBC and free T4 are unremarkable. Urinalysis indicative of acute cystitis with white blood cells red blood cells and leuk esterase therefore, the patient will be given a dose of Macrobid and then d/c'd home on oral macrobid, her magnesium was 1.4 so she received 2 g via IV CMP indicated a glucose of 300 she was given a liter of fluids and Quality Measures none Orders Category Date Time Status EKG (ED ONLY) *Do not use* NOW Care 07/23/24 22:06 Completed In and Out Catheter X1 Care 07/23/24 22:05 Active EKG (ED Only) Stat Exams 07/23/24 22:05 Draft Beta Hydroxybutyrate Stat Lab 07/23/24 22:30 Completed CBC Stat Lab 07/23/24 22:30 Completed CMP [Comprehensive Metabolic Panel] Stat Lab 07/23/24 22:30 Completed Free T4 (Free Thyroxine) Stat Lab 07/23/24 22:30 Completed Mag [Magnesium] Stat Lab 07/23/24 22:30 Completed TSH [Thyroid Stimulating Hormone] Stat Lab 07/23/24 22:30 Completed Troponin I Stat Lab 07/23/24 22:30 Completed UA, C/S IF [Urinalysis, C/S if Indicated] Stat Lab 07/23/24 23:01 Completed Urine Culture Stat Lab 07/23/24 23:01 Received Magnesium Sulfate 2 GM Ivpb [Magnesium Sulfate Ivpb] Med 07/24/24 00:27 Active 2 gm in 50 ml IV X1 Nitrofurantoin Macro [Macrobid] Med 07/24/24 00:51 Discontinued 100 mg PO X1 ONE Sodium Chloride 0.9% 1000 ml [Ns] 1,000 ml Med 07/24/24 00:25 Active IV 999 mls/hr cefTRIAXone [Rocephin] 1,000 mg Med 07/24/24 00:24 Discontinued SODIUM CHLORIDE 0.9% (Popper) [NS 0.9% (Popper)] 50 ml IV QDAY Vital Signs Vital signs: Vital Signs Temperature 98.2 F 07/23/24 21:42 Pulse Rate 84 07/23/24 21:42 Respiratory Rate 17 07/23/24 21:42 Blood Pressure 147/75 H 07/23/24 21:42 Pulse Oximetry (%) 98 07/23/24 21:42 Oxygen Delivery Method Room Air 07/23/24 21:42 Procedures -ED EKG Interpretation #1: EKG Impression: Normal sinus rhythm, No acute ST-T changes and No ischemic changes Extremity Injury, Lower Patient data External records reviewed:: [facility] Clinical information provided by:: family Social determinants that could affect healthcare access:: none Patient has the following chronic illnesses:: CHF, DM, dementia How is presenting disease/condition affected by chronic disease/condition?: uneffected by Evaluation data The following diagnostics were reviewed and interpreted by me:: lab results and radiology exam(s) Lab and/or radiology exams considered but not ordered:: none Interpretation Summary: Slightly elevated glucose, low magnesium, low TSH but normal T4 and evidence of urinary tract infection Medications / Prescriptions Medications or Prescriptions considered but not ordered:: none Medication administrations:: Medication Administration History Sodium Chloride (Ns) 1,000 mls @ 999 mls/hr IV .Q1H1M ONE Stop: 07/24/24 01:25 Last Admin: 07/24/24 00:51 Dose: 999 mls/hr Documented By: TK Magnesium Sulfate (Magnesium Sulfate Ivpb) 2 gm in 50 mls @ 25 mls/hr IV X1 ONE Stop: 07/24/24 02:26 Last Admin: 07/24/24 00:50 Dose: 25 mls/hr Documented By: TK Discontinued Medications Ceftriaxone Sodium 1,000 mg/ (Sodium Chloride) 50 mls @ 100 mls/hr IV QDAY HILARIO Stop: 07/31/24 00:23 Last Admin: 07/24/24 01:12 Dose: Not Given Documented By: HOWARD Non-Admin Reason: Cancelled by Provider Nitrofurantoin Macrocrystals (Nitrofurantoin Macro 100 Mg Capsule) 100 mg PO X1 ONE Stop: 07/24/24 00:52 as above Consultations Consultation(s) initiated? (list below): No Diagnosis Most likely diagnosis given after review of the tests above:: Acute cystitis, hypomagnesemia, DM Admission Indicated Admission indicated?: not indicated Admission Request Was there a request for admission?: No Disposition Plan Disposition Plan: Discharge Discharge Attestation Discharge Attestation: The patient and all family members were given an opportunity to ask questions and understood the discharge instructions. Discharge instructions specifically effects, indications for sooner follow up or return to the emergency department, and the expected course of current diagnosis. Patient condition: Stable Discharge Plan Plan Patient Disposition: Xfer Skilled Nsg Fac (SNF) Prescriptions/Referrals Prescriptions/Med Rec: New nitrofurantoin monohyd/m-cryst [Macrobid] 100 mg capsule 100 mg PO Q12H 7 Days Qty: 14 0RF Rx Instructions: must administer with a meal/food No Action levothyroxine 50 mcg Tablet 50 mcg PO QMORNING Patient Comments: BEFORE MEALS ON EMPTY STOMACH insulin degludec [Tresiba FlexTouch U-200] 200 unit/mL (3 mL) Insulin Pen 24 unit SUBCUT QPM simvastatin 40 mg Tablet 40 mg PO QDAY carvedilol 3.125 mg Tablet 3.125 mg PO BID digoxin [Digitek] 125 mcg (0.125 mg) Tablet 125 mcg PO QDAY fluoxetine 20 mg Capsule 20 mg PO QDAY Brilinta 90 mg Tablet 90 mg PO QDAY aspirin 81 mg Tablet,Delayed Release (Dr/Ec) 81 mg PO QDAY fenofibrate nanocrystallized 48 mg tablet 48 mg PO QDAY Qty: 30 0RF metformin 1,000 mg Tablet 1,000 mg PO BID insulin lispro [Humalog U-100 Insulin] 100 unit/mL solution 20 unit subcut TID PRN (Reason: After every meal) Invokana 100 mg Tablet 100 mg PO QMORNING Patient Comments: BEFORE MEALS ON EMPTY STOMACH levetiracetam 250 mg Tablet 500 mg PO BID Qty: 60 1RF nitrofurantoin 25 mg/5 mL suspension 100 mg PO BID MDD 40 ml Qty: 240 0RF Rx Instructions: must administer with a meal/food multivitamin Tablet 1 tab PO QDAY ascorbic acid (vitamin C) [Vitamin C] 500 mg Tablet 500 mg PO QDAY omeprazole 20 mg capsule,delayed release(DR/EC) 20 mg PO QMORNING Patient Comments: BEFORE MEALS ON EMPTY STOMACH lorazepam [Ativan] 0.5 mg tablet 0.5 mg PO QDAY PRN (Reason: agitation) Qty: 20 0RF Referrals: No Primary/Family,Physician [Primary Care Provider] - In 1 week Problem List Clinical Impression: Acute cystitis, Hypomagnesemia Patient/Caregiver Discharge Instructions Discharge Activity: activity as tolerated Education Materials: ED CYSTITIS Female Adult Additional Instructions: Take antibiotic as directed and follow up with PCP in 48 hours. Return to the ER if sympotms should worsen Print Language: Wolof Stand Alone Forms: Justine Award Info., Patient Portal Info Letter
[2024-07-23 23:41] VITALS: BP 139/64; PULSE 71; RESP 18; TEMP 36; O2SAT 96
[2024-07-24 00:03] LABS: Alanine Aminotransferase 117 U/L (10-49); Albumin, Serum 4.2 gm/dL (3.4-4.8); Albumin/Globulin Ratio 1.4 (1.2-2.2); Alkaline Phosphatase 187 U/L (46-116); Anion Gap 10 (7-16); Aspartate Amino Transferase 50 U/L (0-34); BUN/Creatinine Ratio 19 Ratio (12-20); Bilirubin,Total 0.2 mg/dL (0.3-1.2); Blood Urea Nitrogen 21 mg/dL (9-23); Calcium 9.9 mg/dL (8.3-10.6); Calcium (Corrected) 9.9 mg/dL (8.5-10.1); Carbon Dioxide 20.7 mMol/L (20.0-31.0); Chloride 107 mMol/L (98-107); Creatinine (Component) 1.1 mg/dL (0.6-1.3); Estimated Creatinine Clearance 24.7 mL/min (>60); Free T4 (Free Thyroxine) 1.23 ng/dL (0.89-1.76); Globulin 2.9 gm/dL (2.3-3.5); Glucose 302 mg/dL (74-106); Magnesium 1.4 mg/dL (1.6-2.6); Osmolality,Calculated 289 (275-295); Potassium 4.9 mMol/L (3.4-5.1); Sodium 138 mMol/L (136-145); Thyroid Stimulating Hormone 0.35 uIU/mL (0.55-4.78); Total Protein 7.1 gm/dL (5.7-8.2); Troponin I < 0.002 ng/mL (0.0-0.045); eGFR 50 See Note
[2024-07-24] MEDS: Magnesium Sulfate 2 GM Ivpb 2 GM/50 ML BAG IV (00:50)
[2024-07-24] MEDS: SODIUM CHLORIDE 0.9% 1000 ML 1,000 ML 999 ML IV (00:51)
[2024-07-24] MEDS: NITROFURANTOIN MACRO 100 MG CAPSULE PO (01:45)
[2024-07-24 03:08] VITALS: BP 139/64; PULSE 70; RESP 18; TEMP 36.4; O2SAT 96
== END 2024-07-24 03:14 | disposition skilled nursing facility (03) ==
PROVIDERS: Physician Assistant; Emergency Provider Emergency Medicine
DX: N30.00 Acute cystitis without hematuria (principal); E83.42 Hypomagnesemia; E03.9 Hypothyroidism, unspecified; E11.9 Type 2 diabetes mellitus without complications; I50.9 Heart failure, unspecified; F03.90 Unspecified dementia, unspecified severity, without behavioral disturbance, psychotic disturbance, mood disturbance, and anxiety
CPT/HCPCS: 36415; 80053; 81001; 82010; 83735; 84439; 84443; 84484; 85025; 87077; 87086; 87186; 93005; 96365; 96366; 99284; J3475; J7030; A9270